=== PATIENT | female | born 1950 | race Caucasian/White ===

== ENCOUNTER 2016-09-10 13:27 | Observation (INO) | payer MEDICARE, OTHER ==
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
--- NOTE | ~2016-09-10 | CR63 ---
[facility] A Service of [facility] & [facility] RADIOLOGY TEXT RESULTS PATIENT: JENN RIZVI LOCATION: [place] [address] : [birth year] UNIT #: [id number] AGE: [address]: Ronni Keita MD SEX: F ORDER DR: [id number] [facility] [address] [place], [place] [address] [id number] I MR#: [id number] Acc #: [id number] NAME: JENN RIZVI : 1950 SEX: F STUDY DATE/TIME: 09/10/2016 18:16 UNIT: [facility] ROOM: [facility] STUDY DESCRIPTION: CR Chest 2 View Attending Physician: Ronni Keita M.D. Referring Physician: Ivone Keita M.D. Ordering Physician: Yang Conte M.D. Primary Care Physician: Ivone Keita M.D. MEDICAL IMAGING REPORT This report is preliminary unless electronic signature is present EXAM Chest INDICATIONS Shortness of air and left-sided chest pain. 4-day duration. FINDINGS PA and lateral views of the chest compared to 04/27/2007. Heart and mediastinal contours normal. The lungs are clear. No pleural effusion. IMPRESSION No acute cardiopulmonary findings. Dictated by... Fausto Atkins M.D. THIS IS AN ELECTRONICALLY VERIFIED REPORT Fausto Atkins M.D. at 09/11/2016 10:53 AM RPC/pcl TD: 09/10/2016 23:33 JOB #: [id number] MEDICAL IMAGING REPORT COPY
--- NOTE | ~2016-09-10 | EKG ---
PATIENT: JENN RIZVI UNIT #: [id number] Ventricular Rate: 74 BPM Atrial Rate: 74 BPM P-R Interval: 162 ms QRS Duration: 84 ms Q-T Interval: 418 ms QTC Calculation(Bezet): 463 ms P [place]: 69 degrees Calculated R [place]: 48 degrees Calculated T [place]: 61 degrees Diagnosis Line: Normal sinus rhythm Diagnosis Line: Normal ECG Diagnosis Line: When compared with ECG of 10-SEP-2016 17:38, Diagnosis Line: No significant change was found Diagnosis Line: Confirmed by LANE DIAZ MD ([id number]) on 09/12/2016 Diagnosis Line: 7:07:21 AM INTERPRETING MD: EMILY WATT
--- NOTE | ~2016-09-10 | TH ---
Unit #: [id number] #: [id number] Patient: JENN RIZVI [id number] [address] [address] [id number] I MR#: [id number] NAME: JENN RIZVI : 1950 SEX: F STUDY DATE/TIME: 09/11/2016 UNIT: C5B ROOM: 558 STUDY DESCRIPTION: Imaging Study Attending Physician: Ronni Keita M.D. Referring Physician: Ivone Keita M.D. Primary Care Physician: Ivone Keita M.D. CARDIOLOGY REPORT EXAM Dobutamine Cardiolite stress test, nuclear portion PROCEDURE Using [id number] Cardiolite, rest and stress SPECT images were obtained. Multiple SPECT images were obtained in various views including horizontal and vertical long axis and short axis views of the left ventricle. Images were obtained by gated SPECT method. Patient was administered 11.04 mCi of Cardiolite at rest. Patient was administered 32.5 mCi of Cardiolite after Lexiscan infusion was completed. On the stress images there is normal perfusion noted. The rest images showed normal perfusion. Comparing rest and stress images there is no stress-induced ischemia noted. The left ventricular ejection fraction is calculated to be 64%. There is no focal wall motion abnormality seen. CONCLUSION 1. No stress-induced ischemia noted. 2. The left ventricular ejection fraction is calculated to be 64%. 3. There is no focal wall motion abnormality seen. 4. The left ventricular size is small. 5. Normal dobutamine Cardiolite stress test. 6. Technically limited study due to increased gut uptake. Clinical correlation is requested. Dictated by... Della Granados/alex TD: 09/11/2016 22:32 JOB #: [id number] Unit #: [id number] #: [id number] Patient: JENN RIZVI CARDIOLOGY REPORT X Mei Robertson MD <ELECTRONICALLY SIGNED> 02/16/17 1428 CARDIOLOGY REPORT
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
--- NOTE | ~2016-09-10 | EKG ---
PATIENT: JENN RIZVI UNIT #: [id number] Ventricular Rate: 78 BPM Atrial Rate: 78 BPM P-R Interval: 156 ms QRS Duration: 80 ms Q-T Interval: 388 ms QTC Calculation(Bezet): 442 ms P [place]: 82 degrees Calculated R [place]: 70 degrees Calculated T [place]: 66 degrees Diagnosis Line: Normal sinus rhythm Diagnosis Line: Normal ECG Diagnosis Line: When compared with ECG of 23-MAR-2013 13:32, Diagnosis Line: No significant change was found Diagnosis Line: Confirmed by XIANG ALCARAZ MD ([id number]) on Diagnosis Line: 09/10/2016 11:08:34 PM INTERPRETING MD: VAISHNAVI
--- NOTE | ~2016-09-10 | CT16 ---
[facility] A Service of [facility] & [facility] RADIOLOGY TEXT RESULTS PATIENT: JENN RIZVI LOCATION: [facility] 55-01 : [birth year] UNIT #: [id number] AGE: [address]: Ronni Keita MD SEX: F ORDER DR: [id number] [facility] [address] [place], [place] [address] [id number] I MR#: [id number] Acc #: [id number] NAME: JENN RIZVI : 1950 SEX: F STUDY DATE/TIME: 09/11/2016 19:54 UNIT: [facility] ROOM: [facility] STUDY DESCRIPTION: CT Angio Chest for PE Attending Physician: Ronni Keita M.D. Referring Physician: Ivone Keita M.D. Ordering Physician: Isabel Freedman M.D. Primary Care Physician: Ivone Keita M.D. MEDICAL IMAGING REPORT This report is preliminary unless electronic signature is present EXAM CT angiography chest for PE HISTORY D-dimer 2025, 09/11/2016 at 1444 hours. Short of air for [address] pulmonary angiography performed with intravenous administration of 80 mL Isovue-370. Three-dimensional reconstructions performed through the pulmonary arteries. This CT exam was performed with one or more of the following radiation dose reduction techniques: automatic exposure control, adjustment of mA and/or kV according to patient size, and iterative reconstruction. COMPARISON STUDIES Most recent comparison is a study dated 05/30/2005. FINDINGS Visualized thyroid unremarkable. Status post bilateral augmentation mammoplasty. No axillary adenopathy. There is a stable hypodense precarinal structure measuring up to about 1.3 cm in diameter. Given differences in scan angulation, not significantly changed. This may represent a stable, rather hypodense lymph node or some form of stable mediastinal cyst. There are densely calcified subcarinal lymph nodes. The heart is normal in size. No pleural effusions. Liver unremarkable. Gallbladder is probably still present but incompletely visualized on this examination. Correlate with surgical history. Spleen, pancreas, adrenal glands, upper renal poles unremarkable. No upper abdominal adenopathy. The esophagus is unremarkable. Ekfsxjpt-ix-nmugnx incompletely visualized stomach shows a large volume of food debris within the stomach. This might be physiologic in nature. Correlate with ingestion history. No STS. [facility] A Service of [facility] & [facility] RADIOLOGY TEXT RESULTS PATIENT: JENN RIZVI LOCATION: [place] [address] : [birth year] UNIT #: [id number] AGE: [address]: Ronni Keita MD SEX: F ORDER DR: focal gastric wall abnormality is suggested in the visualized stomach. The lungs show centrilobular and panlobular emphysema. There is no evidence of acute infectious or inflammatory disease. Linear scarring or atelectasis at the right lung base. Calcified granuloma right lung base. Linear scarring or atelectasis left lung base. No acute pulmonary disease suggested. No suspicious nodule. Borderline bronchiectasis centrally. More pronounced than on prior study. Mild bronchial wall prominence likely reflecting components of chronic bronchitis. No mucous plugging. Subpleural 5 mm nodule posterior right lower lobe, unchanged from 2004 and therefore felt to be benign in nature. No suspicious nodule. The pulmonary arteries are well opacified. No PE. No aortic aneurysm or dissection. Scattered atherosclerotic arterial calcifications. Great vessel origins are patent. The celiac axis and superior mesenteric arteries are patent with mild disease at their origins. The bilateral visualized renal arteries are patent with zgex-en-hyxrxwwv disease at their origins. Visualized abdominal aorta normal in caliber. Bony structures show no acute abnormality. IMPRESSION 1. No PE. 2. No aortic aneurysm or dissection. The visualized aortic branch vessels are patent. Scattered atherosclerotic arterial calcifications. 3. COPD with centrilobular and panlobular emphysema. Mild bronchial wall thickening, more pronounced centrally, probably reflecting chronic bronchitis. Borderline central bronchiectasis. 4. There is no indication of acute infectious or inflammatory disease in the lungs. No suspicious nodule. Stable 5 mm noncalcified subpleural nodule posterior right lower lobe, unchanged from 2004 and therefore felt to be benign in nature. Healed granulomatous disease. 5. There is a 1.3 cm short-axis hypodense pre-carinal lymph node or mediastinal cyst which is unchanged from 2004 and felt to be benign in nature. 6. The stomach is only partially visualized but appears at least moderately distended with food debris. Correlate with ingestion history. This is probably physiologic in nature. Correlate with any clinical concern for gastroparesis. 7. Postoperative changes of bilateral augmentation mammoplasty. Dictated by... Hany Davenport M.D. THIS IS AN ELECTRONICALLY VERIFIED REPORT Hany Davenport M.D. at 09/12/2016 4:30 PM VALDEMAR/kale TD: 09/11/2016 22:27 [facility] A Service of [facility] RADIOLOGY TEXT RESULTS PATIENT: JENN RIZVI LOCATION: [place] [address] : [birth year] UNIT #: [id number] AGE: [address]: Ronni Keita MD SEX: F ORDER DR: ARSEN #: [id number] MEDICAL IMAGING REPORT COPY
--- NOTE | ~2016-09-10 | ST ---
Unit #: [id number] #: [id number] Patient: JENN RIZVI [id number] [address] [address] [id number] I MR#: [id number] NAME: JENN RIZVI : 1950 SEX: F STUDY DATE/TIME: 09/11/2016 UNIT: C5B ROOM: 558 STUDY DESCRIPTION: Stress test Attending Physician: Ronni Keita M.D. Referring Physician: Ivone Keita M.D. Primary Care Physician: Ivone Keita M.D. CARDIOLOGY REPORT EXAM Dobutamine Lexiscan Cardiolite stress test DESCRIPTION OF PROCEDURE AND FINDINGS Baseline EKG normal sinus rhythm with ventricular rate 64 beats per minute, left atrial abnormality, Q wave in V1, poor R-wave progression. Dobutamine was infused at 10 mcg/kg per minute and increased every three minutes to a maximum infusion rate of 45 mcg/kg per minute. On this dobutamine infusion the heart rate only got to 117 beats per minute, required 0.2 mg of IV atropine to get a maximum heart rate response of 141 beats per minute. EKG during the infusion and after the atropine did not show any acute ischemic changes. Patient had no complaints of chest pain, palpitations or dizziness, increased shortness of breath and felt heart pounding during the infusion. Maximum blood pressure response was 177/80 mmHg. At the end of recovery phase the patient's blood pressure was 141/69 mmHg. Cardiolite was injected at maximum target heart rate. Radionuclide test pending. Please correlate with nuclear images. Dictated by... Nadia Asher A.P.R.N. for Della Granados/alex TD: 09/11/2016 20:02 JOB #: [id number] Unit #: [id number] #: [id number] Patient: JENN RIZVI CARDIOLOGY REPORT X Nadia Asher APRN CARDIOLOGY REPORT
[~2016-09-10 13:27] MED LIST: ANTIVERT PO; BUMEX PO; DOXEPIN PO; FLEXERIL10 MG PO; KLONOPIN PO; KLONOPIN2 MG PO; LORTAB 5/500 TA1 TA1 PO; LORTAB 7.5-5001 TAB PO; LOTREL PO; MOBIC PO; MOBIC15 MG PO; NEURONTIN600 MG DOB; PERCOCET 71 UDTAB 7. PO; PREMARIN PO; PRILOSEC PO; SEROQUEL PO; SEROQUEL400 MG DOB; VICODIN 5/500 T1 TAB PO; [UNRECOGNIZED DRUG - OTHER] TOP
[2016-09-10 18:31] LABS: HEMATOCRIT 39.9 % (35.0-45.0); HEMOGLOBIN 13.3 gm/dL (12.0-16.0); MEAN CELL VOLUME 103.7 FL (83-96); MEAN CORPUSCULAR HEMOGLOBIN 34.7 PG (28-34); MEAN CORPUSCULAR HGB CONC 33.4 g/dL (30-36); MEAN PLATELET VOLUME 8.8 FL (6.5-11.5); RED BLOOD COUNT 3.84 X10e (3.90-5.30); RED CELL DISTRIBUTION WIDTH 12.4 % (11.0-15.5); WHITE BLOOD COUNT 5.8 X10e3 (4.0-10.5)
[2016-09-10 18:38] LABS: ALBUMIN SERUM 3.9 g/dL (3.5-5.0); ALKALINE PHOSPHATASE 54 U/L (32-92); ALT (SGPT) 54 U/L (10-40); AST (SGOT) 59 U/L (10-42); BILIRUBIN,TOTAL 0.9 mg/dL (0.2-2.0); BLOOD UREA NITROGEN 21 mg/dL (9-23); CALCIUM SERUM 8.3 mg/dL (8.4-10.2); CARBON DIOXIDE 28 mmol/L (22-31); CHLORIDE 103 mmol/L (100-111); CK TOTAL 35 IU/L (26-140); CREATININE SERUM 0.6 mg/dL (0.6-1.4); GLOM FILT RATE Estimated ABOVE60 mL/min (>60); GLUCOSE FASTING 72 mg/dL (70-110); POTASSIUM 3.7 mmol/L (3.5-5.1); PROTEIN TOTAL SERUM 6.6 g/dL (6.0-8.3); SODIUM 135 mmol/L (135-145)
[2016-09-10 18:48] LABS: THYROID STIMULATING HORMONE 0.71 uIU/ml (0.34-5.60)
[2016-09-10 18:55] LABS: FREE THYROXIN (T4) 0.72 ng/dL (0.58-1.64)
[2016-09-10] MEDS ORDERED: XTAMPZA ER18 MG PO (19:41)
[2016-09-10] MEDS ORDERED: NEURONTIN300 MG PO (19:42)
[2016-09-10] MEDS ORDERED: KLONOPIN2 MG PO (19:42)
[2016-09-10] MEDS ORDERED: OMEGA-3 1,0001 EACH PO (19:43)
[2016-09-10] MEDS ORDERED: SEROQUEL400 MG PO (19:44)
[2016-09-10] MEDS ORDERED: REMERON PO (19:45)
[2016-09-11 02:13] LABS: CK TOTAL 32 IU/L (26-140)
[2016-09-11 07:41] LABS: CHOLESTEROL 169 mg/dL (0-200); HDL CHOLESTEROL 63 mg/dL (35-95); LDL CHOLESTEROL 98 mg/dL (-130); LDL/HDL RATIO 2 RATIO (0-4); TRIGLYCERIDES 39 mg/dL (10-160)
[2016-09-11 14:35] LABS: CK TOTAL 24 IU/L (26-140)
[2016-09-12] MEDS ORDERED: NICOTINE TRANSD14 MG EXT (14:20)
[2016-09-12] MEDS ORDERED: LOPRESSOR PO (14:23)
[2016-09-12] MEDS ORDERED: AUGMENTIN875 MG PO (14:24)
[2016-09-12] MEDS ORDERED: PROTONIX PO (14:25)
[2016-09-12] MEDS ORDERED: PREDNISONE PO (14:26)
[2016-09-12] MEDS ORDERED: SYMBICORT INH (14:27)
[2016-09-12] MEDS ORDERED: ALBUTEROL17 GM INH (14:30)
== END 2016-09-12 18:45 | disposition home or self-care (01) ==
LOC: C5B 13:27
PROVIDERS: Internal Medicine; Nurse Practitioner
DX: R07.89 Other chest pain (principal); R79.89 Other specified abnormal findings of blood chemistry; J44.1 Chronic obstructive pulmonary disease with (acute) exacerbation; I10 Essential (primary) hypertension; F17.210 Nicotine dependence, cigarettes, uncomplicated; F41.9 Anxiety disorder, unspecified; R00.2 Palpitations
CPT/HCPCS: 71020; 71275; 78452; 80053; 80061; 82550; 84439; 84443; 84484; 85027; 85379; 93005; 93017; 93306; 94760; 96374; 96376; A9500; G0378; J0461; J1250; J2785; J2920; J2930; Q9967

== ENCOUNTER 2017-02-09 15:36 | Observation (INO) | payer MEDICARE, OTHER ==
[~2017-02-09] VITALS: Ht 165.1 cm; Wt 45.9 kg
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
--- NOTE | ~2017-02-09 | EKG ---
PATIENT: JENN RIZVI UNIT #: [id number] Ventricular Rate: 94 BPM Atrial Rate: 94 BPM P-R Interval: 134 ms QRS Duration: 86 ms Q-T Interval: 368 ms QTC Calculation(Bezet): 460 ms P [place]: 78 degrees Calculated R [place]: 71 degrees Calculated T [place]: 42 degrees Diagnosis Line: Normal sinus rhythm Diagnosis Line: Normal ECG Diagnosis Line: When compared with ECG of 11-SEP-2016 07:14, Diagnosis Line: No significant change was found Diagnosis Line: Confirmed by SILVERIO SALEH MD ([id number]) on Diagnosis Line: 02/10/2017 5:40:55 PM INTERPRETING MD: DELFINO WATT
--- NOTE | ~2017-02-09 | CT16 ---
[facility] A Service of [facility] RADIOLOGY TEXT RESULTS PATIENT: JENN RIZVI LOCATION: [facility] 548-01 : 48 UNIT #: [id number] AGE: [address]: Isabel Freedman MD SEX: F ORDER DR: [id number] [facility] [address] [place], [place] [address] [id number] I MR#: [id number] #: [id number] NAME: JENN RIZVI : 1950 SEX: F STUDY DATE/TIME: 02/09/2017 19:54 UNIT: CEDOF ROOM: 68728 STUDY DESCRIPTION: CT Angio Chest for PE Attending Physician: Isabel Freedman M.D. Ordering Physician: Lj Benitez D.O. Primary Care Physician: Ivone Keita M.D. MEDICAL IMAGING REPORT This report is preliminary unless electronic signature is present EXAM CT angiography of the chest with IV contrast, PE protocol COMPARISON September 01, 2016 and May 30, 2005. INDICATION 66-year-old female with chest pain for 2 days localizing the substernal location. FINDINGS This CT exam was performed with one or more of the following radiation dose reduction techniques: automatic control, adjustment of mA and/or kV according to patient size, and iterative reconstruction. Axial CT imaging of the chest was performed after IV administration of 100 mL Isovue-370. Coronal MIPs and sagittal reformats were constructed. There are bilateral silicone breast implants. These both have extensive capsular calcifications. There are linguini signs in both implants consistent with intracapsular rupture. No acute fractures or suspicious osseous lesions. Calcifications of the common carotid arteries in the bilateral neck. There is a pretracheal lymph node measuring up to 1.1 cm short axis which is stable to minimally increased from September 11 of this year and stable from May 2005. 1.2 cm short axis precarinal lymph nodes also stable from 2004. There are calcified subcarinal lymph nodes. There is diffuse calcification of the thoracic aorta which is normal in caliber. Normal caliber of the pulmonary artery. No evidence of pulmonary embolus. Normal heart size, without pericardial effusion. No pleural effusion, pneumothorax or focal airspace disease. There is moderate centrilobular emphysema. Calcified granuloma right middle lobe calcified granuloma posterior basilar segment right lower lobe. There is calcified and noncalcified plaque in the abdominal aorta. Calcifications involve the origins of the celiac, superior mesenteric and bilateral renal STS. [facility] A Service of [facility] RADIOLOGY TEXT RESULTS PATIENT: JENN RIZVI LOCATION: [place] [address] : [birth year] UNIT #: [id number] AGE: [address]: Isabel Freedman MD SEX: F ORDER DR: arteries. There is likely at least moderate stenosis of the origin of the right renal artery and there is likely at least mild stenosis at the origin of the left renal artery. No significant stenosis is seen at the celiac, superior mesenteric arteries. Simple cysts in the superior left kidney measuring up to 1.8 cm. IMPRESSION 1. No evidence of pulmonary embolus or acute abnormality within the chest or imaged upper abdomen. 2. Bilateral carotid artery calcifications in the neck. Extensive arterial calcifications in the upper abdomen likely causing some degree of stenosis at the origins of both renal arteries. 3. Moderate centrilobular emphysema. 4. Bilateral silicone breast implants with evidence of intracapsular rupture bilaterally. 5. Stable mildly enlarged lymph nodes in the mediastinum as compared to 2005, consistent with a reactive process. The patient has evidence of remote granulomatous infection in the chest. Dictated by... Mckinley Cardenas M.D. THIS IS AN ELECTRONICALLY VERIFIED REPORT Mckinley Cardenas M.D. at 02/16/2017 8:37 PM HALLIE/robert TD: 02/10/2017 01:36 JOB #: [id number] MEDICAL IMAGING REPORT Page 1 of 1 COPY
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
--- NOTE | ~2017-02-09 | A ---
[facility] Nutrition Therapy DATE: 02/11/17 Patient: JENN Cid BELKYS Physician: KANWAL Address: [address] [place] [address] Room/Bed: [address] [place] [address], Zip: [place] [address] Admit Date: 02/10/17 Date of : [birth year] Height: 5 5 Weight: 80 36.28 NUTRITIONAL ASSESSMENT: REASON: LOW BMI + CONSULT PT IS 66 Y.O. FEMALE ADMITTED FOR CHEST PAIN PMH: COPD, PNA, GERD, HTN, HLD, LUNG/COLON CA, ANXIETY, DEPRESSION, ?SEIZURES, PAST ADMIT AT [facility], BREAST AUGMENTATION Anthropometrics: 5'5", WT: 85# (39 KG), BMI: 14.1, 68%IBW Labs: BUN: 27, CA+:8.1, K+:3.1 Meds: REMERON, PROTONIX, NACL I/O & Bowel function: 910/3 Skin Integrity: SCAR (R) HIP, NO EDEMA Estimated Nutrition Needs: INCREASED NEEDS 2' PT UNDERWEIGHT, DECREASED PO INTAKE, WEIGHT LOSS NOTED Assessment: CHART REVIEWED AND EVENTS NOTED. PT SEEN FOR LOW BMI + CONSULT. PT REPORTS OVERALL GOOD APPETITE, NO C/O N/V/D. PT REPORTS STRESS AT HOME CONTRIBUTING TO HER WEIGHT LOSS AND UNDERWEIGHT STATUS. PT REPORTS UBW IS ~132#/ NOTING LOSING ~45# 1-2 YEARS AGO/SEVERE WEIGHT LOSS NOTED. THIS RD ENCOURAGED ADEQUATE KCAL AND PROTEIN INTAKE, PT AGREED TO ENSURE SHAKES TID W/MEALS. ALSO, PER RN AND CHART, FIRE FIGHTERS DISPATCHER/PIPE LINE GAUGER ON BOARD FOR PT'S HOME SITUATION. PT REPORTED NO DIET QUESTIONS AT THIS TIME. RD TO CONTINUE TO FOLLOW. SEE RECOMMENDATIONS BELOW. Dx: UNDERWEIGHT R/T HOME SITUATION, STRESS AT HOME AEB LOW BMI OF 14.1, 68%IBW, SEVERE WEIGHT LOSS NOTED PAST 1-2 YEARS. Intervention: 1. HH DIET 2. RD CONSULT 3. ENSURE SHAKES TID Monitoring, Evaluation and Goals: 1. ORAL INTAKE; CONSUME/TOLERATE >50% OF MEALS AND SUPPLEMENTS 2. WEIGHTS; PROMOTE GRADUAL WEIGHT GAIN TOWARDS HEALTHY; PREVENT FURTHER WEIGHT LOSS 3. LABS; WNL MONITOR: -PO INTAKE/APPETITE [facility] Nutrition Therapy DATE: 02/11/17 Patient: JENN YUS Physician: KANWAL Address: [address] Room/Bed: [address] [place] [address], Zip: [place] [address] Admit Date: 02/10/17 Date of : [birth year] Height: 5 5 Weight: 80 36.28 -WEIGHTS -SUPPLEMENT INTAKE Recommendations: 1. PLEASE ORDER STRAWBERRY ENSURE SHAKES TID W/MEALS 2. CONSIDER CHANGING CURRENT DIET ORDER TO REGULAR TO OFFER MORE FOOD CHOICES, OFFER ADDITIONAL PROTEIN AND KCAL, PT UNDERWEIGHT 3. CONTINUE PIPE LINE GAUGER/FIRE FIGHTERS DISPATCHER CONSULT RE: PT'S HOME SITUATION RD WILL F/U PER PROTOCOL PT IS MODERATELY COMPROMISED Respectfully, MERCED SANTO MS, RD, LD [employer] cc: client file
--- NOTE | ~2017-02-09 | EKG ---
PATIENT: JENN RIZVI UNIT #: [id number] Ventricular Rate: 61 BPM Atrial Rate: 61 BPM P-R Interval: 118 ms QRS Duration: 80 ms Q-T Interval: 440 ms QTC Calculation(Bezet): 442 ms P [place]: 64 degrees Calculated R [place]: 77 degrees Calculated T [place]: 62 degrees Diagnosis Line: Normal sinus rhythm Diagnosis Line: Normal ECG Diagnosis Line: When compared with ECG of 09-FEB-2017 15:40, Diagnosis Line: (unconfirmed) Diagnosis Line: Vent. rate has decreased BY 33 BPM Diagnosis Line: Confirmed by ALBARO MARX MD ([id number]) on Diagnosis Line: 02/11/2017 12:20:35 PM INTERPRETING MD: SUSANNAH
--- NOTE | ~2017-02-09 | CR72 ---
[facility] A Service of [facility] RADIOLOGY TEXT RESULTS PATIENT: JENN RIZVI LOCATION: [place] [address] : [birth year] UNIT #: [id number] AGE: [address]: Isabel Freedman MD SEX: F ORDER DR: [id number] [facility] [address] [place], [place] [address] [id number] E MR#: [id number] Acc #: [id number] NAME: JENN RIZVI : 1950 SEX: F STUDY DATE/TIME: 02/09/2017 16:27 UNIT: [facility] ROOM: STUDY DESCRIPTION: CR Chest Single View Portable Attending Physician: Lj Benitez D.O. Ordering Physician: Lj Benitez D.O. Primary Care Physician: Ivone Keita M.D. MEDICAL IMAGING REPORT This report is preliminary unless electronic signature is present EXAM Portable chest HISTORY Chest pain. Cough and congestion for 2 days. FINDINGS Cardiac size and pulmonary vascularity are normal. Mild hyperinflation both lungs. Peripherally calcified breast implants. No airspace infiltrates or effusions are identified. Calcified mediastinal nodes. Additional small calcified granuloma in the right lung base. IMPRESSION No acute findings Dictated by... Israel Arreola M.D. THIS IS AN ELECTRONICALLY VERIFIED REPORT Israel Arreola M.D. at 02/10/2017 6:05 PM DFL/rnr TD: 02/09/2017 23:15 JOB #: [id number] MEDICAL IMAGING REPORT Page 1 of 1 COPY
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
[~2017-02-09 15:36] MED LIST changes: +ALBUTEROL17 GM INH; +AUGMENTIN875 MG PO; +LOPRESSOR PO; +NEURONTIN300 MG PO; +NICOTINE TRANSD14 MG EXT; +OMEGA-3 1,0001 EACH PO; +PREDNISONE PO; +PROTONIX PO; +REMERON PO; +SEROQUEL400 MG PO; +SYMBICORT INH; +XTAMPZA ER18 MG PO
[2017-02-09 17:25] LABS: POC - CKMB 2.1 ng/mL (0.0-7.9); POC - TROPONIN <0.05 ng/mL (<=0.05)
[2017-02-09 17:25] LABS: BASOPHIL# 0.1 X10e3 (0-0.3); DIFF IND NO; EOSINOPHIL# 0.1 X10e3 (0-0.7); EOSINOPHIL% 0.7 % (0.0-7.0); HEMATOCRIT 44.1 % (35.0-45.0); HEMOGLOBIN 14.6 gm/dL (12.0-16.0); LYMPHOCYTE# 2.6 X10e3 (1.0-3.5); LYMPHOCYTE% 34.1 % (17.0-45.0); MEAN CELL VOLUME 101.6 FL (83-96); MEAN CORPUSCULAR HEMOGLOBIN 33.6 PG (28-34); MEAN CORPUSCULAR HGB CONC 33.1 g/dL (30-36); MONOCYTE# 0.6 X10e3 (0-1.0); MONOCYTE% 7.4 % (3.0-12.0); NEUTROPHIL# 4.3 X10e3 (1.5-7.1); NEUTROPHIL% 56.8 % (40-75); PLATELET COUNT 202 X10e3 (140-420); RED BLOOD COUNT 4.34 X10e (3.90-5.30); WHITE BLOOD COUNT 7.6 X10e3 (4.0-10.5)
[2017-02-09 17:42] LABS: PARTIAL THROMBOPLASTIN TIME 25.4 SECONDS (23.5-31.3)
[2017-02-09 17:51] LABS: ALBUMIN SERUM 4.2 g/dL (3.5-5.0); BILIRUBIN, DIRECT 0.1 mg/dL (0.0-0.2); BILIRUBIN,INDIRECT 0.6 mg/dL (0.0-0.9); BILIRUBIN,TOTAL 0.7 mg/dL (0.2-2.0); CALCIUM SERUM 8.8 mg/dL (8.4-10.2); GLOM FILT RATE Estimated 57.9 mL/min (>60); POTASSIUM 3.3 mmol/L (3.5-5.1); PROTEIN TOTAL SERUM 7.5 g/dL (6.0-8.3)
[2017-02-09 19:26] LABS: POC - CKMB 1.4 ng/mL (0.0-7.9); POC - TROPONIN <0.05 ng/mL (<=0.05)
[2017-02-10 01:09] LABS: BASOPHIL% 0.7 % (0-2.5); EOSINOPHIL# 0.1 X10e3 (0-0.7); EOSINOPHIL% 1.6 % (0.0-7.0); HEMATOCRIT 39.8 % (35.0-45.0); HEMOGLOBIN 13.1 gm/dL (12.0-16.0); LYMPHOCYTE# 2.6 X10e3 (1.0-3.5); LYMPHOCYTE% 45.3 % (17.0-45.0); MEAN CELL VOLUME 101.3 FL (83-96); MEAN CORPUSCULAR HEMOGLOBIN 33.4 PG (28-34); MEAN CORPUSCULAR HGB CONC 32.9 g/dL (30-36); MEAN PLATELET VOLUME 8.9 FL (6.5-11.5); MONOCYTE# 0.4 X10e3 (0-1.0); MONOCYTE% 6.9 % (3.0-12.0); NEUTROPHIL# 2.6 X10e3 (1.5-7.1); NEUTROPHIL% 45.5 % (40-75); PLATELET COUNT 169 X10e3 (140-420); RED BLOOD COUNT 3.93 X10e (3.90-5.30); WHITE BLOOD COUNT 5.8 X10e3 (4.0-10.5)
[2017-02-10 01:12] LABS: DIFF IND NO
[2017-02-10 01:34] LABS: BUN/CREATININE RATIO 33.75; CALCIUM SERUM 8.1 mg/dL (8.4-10.2); CREATININE SERUM 0.8 mg/dL (0.6-1.4); GLOM FILT RATE Estimated 75.8 mL/min (>60); POTASSIUM 3.1 mmol/L (3.5-5.1)
[2017-02-10] MEDS ORDERED: PERCOCET5/325 PO (10:50)
[2017-02-12 05:25] LABS: HEMATOCRIT 39.4 % (35.0-45.0); HEMOGLOBIN 12.9 gm/dL (12.0-16.0); MEAN CELL VOLUME 101.8 FL (83-96); MEAN CORPUSCULAR HEMOGLOBIN 33.3 PG (28-34); MEAN CORPUSCULAR HGB CONC 32.8 g/dL (30-36); MEAN PLATELET VOLUME 9.6 FL (6.5-11.5); RED BLOOD COUNT 3.87 X10e (3.90-5.30); RED CELL DISTRIBUTION WIDTH 13.1 % (11.0-15.5)
[2017-02-12 06:21] LABS: BUN/CREATININE RATIO 48.57; CALCIUM SERUM 8.6 mg/dL (8.4-10.2); CREATININE SERUM 0.7 mg/dL (0.6-1.4); POTASSIUM 3.7 mmol/L (3.5-5.1)
== END 2017-02-12 17:00 | disposition home or self-care (01) ==
LOC: CED 15:36 → C5B 02-10 00:07 → CEDOF 02-10 00:07 → C5B 02-10 08:41
PROVIDERS: Emergency Medicine; Physician Assistant Medical
DX: R07.89 Other chest pain (principal); F41.9 Anxiety disorder, unspecified; F32.9 Major depressive disorder, single episode, unspecified; J44.9 Chronic obstructive pulmonary disease, unspecified; I10 Essential (primary) hypertension; E78.5 Hyperlipidemia, unspecified; I65.23 Occlusion and stenosis of bilateral carotid arteries; R59.0 Localized enlarged lymph nodes; I70.8 Atherosclerosis of other arteries; T85.898A Other specified complication of other internal prosthetic devices, implants and grafts, initial encounter; Z98.82 Breast implant status; F17.200 Nicotine dependence, unspecified, uncomplicated; Z79.899 Other long term (current) drug therapy; Z79.891 Long term (current) use of opiate analgesic; Z90.710 Acquired absence of both cervix and uterus
CPT/HCPCS: 36415; 71010; 71275; 80048; 80076; 82550; 82553; 84484; 85025; 85027; 85379; 85610; 85730; 93005; 94640; 94664; 94760; 96360; 96361; 96372; 96374; 96376; 97162; 99285; C9113; G0378; G8978-GP; G8979-GP; G8980-GP; J1650; Q9967

== ENCOUNTER 2017-03-22 20:58 | Emergency (ER) | payer MEDICARE, OTHER ==
[~2017-03-22] VITALS: Ht 165.1 cm; Wt 45.4 kg
--- NOTE | ~2017-03-22 | CT71 ---
[facility] A Service of [facility] RADIOLOGY TEXT RESULTS PATIENT: JENN RIZVI LOCATION: SED : 48 UNIT #: [id number] AGE: [address]: Hany Hawk MD SEX: F ORDER DR: [id number] [address] [address] [id number] E MR#: [id number] Acc #: [id number] NAME: JENN RIZVI : 1950 SEX: F STUDY DATE/TIME: 03/22/2017 22:01 UNIT: SED ROOM: STUDY DESCRIPTION: CT Head Wo Contrast Attending Physician: Hany Hawk M.D. Ordering Physician: Hany Hawk M.D. Primary Care Physician: Ivone Keita M.D. MEDICAL IMAGING REPORT This report is preliminary unless electronic signature is present. EXAM Head CT without contrast HISTORY Dizziness for the past 5 days. Patient has fallen several times. Headache. Unsure whether loss of consciousness. TECHNIQUE Axial images were obtained without contrast. This CT exam was performed with one or more of the following radiation dose reduction techniques: automatic control, adjustment of mA and/or kV according to patient size, and iterative reconstruction. FINDINGS Postoperative changes are seen on the right. Encephalomalacia is seen in the right frontal and parietal lobes. Generalized atrophy is noted. There is no evidence of mass lesion, hemorrhage or edema. Since the previous scan in 2012 no changes are noted. A scalp hematoma is seen over the left frontal bone without evidence of fracture or foreign body. IMPRESSION Stable postoperative encephalomalacia on the right. Left frontal scalp hematoma. No acute findings otherwise. Dictated by... Jarvis Paniagua M.D. THIS IS AN ELECTRONICALLY VERIFIED REPORT Jarvis Paniagua M.D. at 03/25/2017 7:14 AM RLF/robert TD: 03/24/2017 01:08 [facility] A Service [facility] RADIOLOGY TEXT RESULTS PATIENT: JENN RIZVI LOCATION: [facility] : 46 UNIT #: [id number] AGE: [address]: Hany Hawk MD SEX: F ORDER DR: ARSEN #: [id number] MEDICAL IMAGING REPORT Page 1 of 1
--- NOTE | ~2017-03-22 | EKG ---
PATIENT: JENN RIZVI UNIT #: [id number] Ventricular Rate: 85 BPM Atrial Rate: 85 BPM P-R Interval: 144 ms QRS Duration: 82 ms Q-T Interval: 388 ms QTC Calculation(Bezet): 461 ms P [place]: 81 degrees Calculated R [place]: 80 degrees Calculated T [place]: 70 degrees Diagnosis Line: Normal sinus rhythm Diagnosis Line: Possible Left atrial enlargement Diagnosis Line: Borderline ECG Diagnosis Line: When compared with ECG of 10-FEB-2017 07:16, Diagnosis Line: No significant change was found Diagnosis Line: Confirmed by YISEL BRITT MD ([id number]) on Diagnosis Line: 03/25/2017 1:50:14 PM INTERPRETING MD: LORENZA WATT
--- NOTE | ~2017-03-22 | CT52 ---
[facility] A Service of [facility] RADIOLOGY TEXT RESULTS PATIENT: JENN RIZVI LOCATION: [facility] : 46 UNIT #: [id number] AGE: [address]: Hany Hawk MD SEX: F ORDER DR: [id number] [address] [address] [id number] E MR#: [id number] Acc #: [id number] NAME: JENN RIZVI : 1950 SEX: F STUDY DATE/TIME: 03/22/2017 22:01 UNIT: SED ROOM: STUDY DESCRIPTION: CT Cervical Spine Wo Cont Attending Physician: Hany Hawk M.D. Ordering Physician: Hany Hawk M.D. Primary Care Physician: Ivone Keita M.D. MEDICAL IMAGING REPORT This report is preliminary unless electronic signature is present. EXAM Cervical spine CT HISTORY Neck pain after falling several times over the past 5 days secondary to dizziness. TECHNIQUE Thin section imaging was obtained from the skull base to the upper thoracic spine and evaluated at bone and soft tissue windows with multiplanar reformats. This CT exam was performed with one or more of the following radiation dose reduction techniques: automatic control, adjustment of mA and/or kV according to patient size, and iterative reconstruction. FINDINGS Alignment is satisfactory. There are mild degenerative changes at the upper cervical levels and there is moderate degenerative disc disease with disc space narrowing and small osteophytes at C5-6 and C6-7. The posterior facets are intact with mild facet hypertrophy noted. No fractures or destructive bone lesions are seen. No paraspinous soft tissue masses are noted. IMPRESSION Degenerative disc and facet disease generally [id number]. No acute bony abnormalities are seen. Dictated by... Jravis Paniagua M.D. THIS IS AN ELECTRONICALLY VERIFIED REPORT Jarvis Paniagua M.D. at 03/25/2017 7:14 AM [facility] A Service of [facility] RADIOLOGY TEXT RESULTS PATIENT: JENN RIZVI LOCATION: SED : 46 UNIT #: [id number] AGE: [address]: Hany Hawk MD SEX: F ORDER DR: FRANK/robert TD: 03/24/2017 01:12 JOB #: [id number] MEDICAL IMAGING REPORT Page 1 of 1
--- NOTE | ~2017-03-22 | CR219 ---
[facility] A Service of [facility] RADIOLOGY TEXT RESULTS PATIENT: JENN RIZVI LOCATION: SED : 46 UNIT #: [id number] AGE: [address]: Hany Hakw MD SEX: F ORDER DR: [id number] [place] [id number] E MR#: [id number] Acc #: [id number] NAME: JENN RIZVI : 1950 SEX: F STUDY DATE/TIME: 03/22/2017 22:06 UNIT: SED ROOM: STUDY DESCRIPTION: CR Sacrum and Coccyx Min 2 Vie Attending Physician: Hany Hawk M.D. Ordering Physician: Hany Hawk M.D. Primary Care Physician: Ivone Keita M.D. MEDICAL IMAGING REPORT This report is preliminary unless electronic signature is present. EXAM Sacrum and coccyx 03/22/2017 HISTORY 66-year-old female with low back pain and tail bone pain status post fall 5 days ago. COMPARISON None. FINDINGS 3 views of the sacrum and coccyx demonstrate no evidence of acute fracture. SI joints appear intact. Visualized bony pelvis intact. IMPRESSION Unremarkable sacrum/coccyx Dictated by... Demarco Jolley M.D. THIS IS AN ELECTRONICALLY VERIFIED REPORT Demarco Jolley M.D. at 03/25/2017 10:53 AM JUMA/robert TD: 03/24/2017 01:14 JOB #: [id number] MEDICAL IMAGING REPORT Page 1 of 1
--- NOTE | ~2017-03-22 | CR181 ---
[facility] A Service [facility] RADIOLOGY TEXT RESULTS PATIENT: JENN RIZVI LOCATION: SED : 46 UNIT #: [id number] AGE: [address]: Hany Hawk MD SEX: F ORDER DR: [id number] [place] [id number] E MR#: [id number] Acc #: [id number] NAME: JENN RIZVI : 1950 SEX: F STUDY DATE/TIME: 03/22/2017 22:06 UNIT: SED ROOM: STUDY DESCRIPTION: CR Lumbar Spine 2 or 3 Views Attending Physician: Hany Hawk M.D. Ordering Physician: Hany Hawk M.D. Primary Care Physician: Ivone Keita M.D. MEDICAL IMAGING REPORT This report is preliminary unless electronic signature is present. EXAM Lumbar spine 03/22/2017 HISTORY 66-year-old female with low back pain status post fall 5 days ago. COMPARISON None available. FINDINGS 3 views of the lumbar spine demonstrate no acute fracture or subluxation. Vertebral body heights and alignment are normally maintained. Disc spaces are within expected limits. Mild multilevel facet degeneration. Atherosclerotic calcification in the abdominal aorta. Sacrum and SI joints appear intact. IMPRESSION 1. No acute lumbar spine injury. 2. Mild multilevel facet degeneration. 3. Atherosclerotic calcification of the abdominal aorta Dictated by... Demarco Jolley M.D. THIS IS AN ELECTRONICALLY VERIFIED REPORT Demarco Jolley M.D. at 03/25/2017 10:53 AM JUMA/robert TD: 03/24/2017 01:05 JOB #: [id number] MEDICAL IMAGING REPORT [facility] A Service [facility] RADIOLOGY TEXT RESULTS PATIENT: JENN RIZVI LOCATION: SED : 46 UNIT #: [id number] AGE: [address]: Hany Hawk MD SEX: F ORDER DR: Page 1 of 1
[~2017-03-22 20:58] MED LIST changes: +PERCOCET5/325 PO
[2017-03-22] MEDS ORDERED: AMITIZA8 MCG PO (21:18)
[2017-03-22] MEDS ORDERED: KLONOPIN2 MG PO (21:18)
[2017-03-22] MEDS ORDERED: ASPIRIN81 M2 PO (21:18)
[2017-03-22 22:03] LABS: POC - CKMB 1.9 ng/mL (0.0-7.9); POC - MYOGLOBIN 42.4 ng/mL (0.0-169.0); POC - TROPONIN <0.05 ng/mL (<=0.05)
[2017-03-22 22:11] LABS: BASOPHIL% 0.4 % (0-2.5); EOSINOPHIL# 0.1 X10e3 (0-0.7); EOSINOPHIL% 0.8 % (0.0-7.0); HEMATOCRIT 39.5 % (35.0-45.0); HEMOGLOBIN 12.9 gm/dL (12.0-16.0); LYMPHOCYTE% 28.8 % (17.0-45.0); MEAN CELL VOLUME 106.3 FL (83-96); MEAN CORPUSCULAR HEMOGLOBIN 34.8 PG (28-34); MEAN CORPUSCULAR HGB CONC 32.8 g/dL (30-36); MEAN PLATELET VOLUME 8.2 FL (6.5-11.5); MONOCYTE# 0.5 X10e3 (0-1.0); MONOCYTE% 7.2 % (3.0-12.0); NEUTROPHIL# 4.4 X10e3 (1.5-7.1); NEUTROPHIL% 62.8 % (40-75); PLATELET COUNT 214 X10e3 (140-420); RED BLOOD COUNT 3.72 X10e (3.90-5.30)
[2017-03-22 22:12] LABS: DIFF IND NO
[2017-03-22 22:18] LABS: CALCIUM SERUM 8.7 mg/dL (8.4-10.2); CREATININE SERUM 0.7 mg/dL (0.6-1.4); POTASSIUM 3.3 mmol/L (3.5-5.1)
[2017-03-22 23:30] LABS: URINE SOURCE CLEAN CATCH
[2017-03-22 23:34] LABS: URINE APPEARANCE SL CLOUDY; URINE BLOOD NEG (NEG); URINE COLOR DK YELLOW; URINE GLUCOSE NEG (NORM); URINE KETONE TRACE (NEG); URINE LEUKOCYTE ESTERASE NEG (NEG); URINE NITRATE NEG (NEG); URINE PH 6.5 (5-8); URINE PROTEIN 1+ (NEG); URINE SPECIFIC GRAVITY 1.025 (1.003-1.035); URINE UROBILINOGEN >=8.0 MG/DL (NORM)
[2017-03-22 23:36] LABS: MICRO INDICATED? YES
[2017-03-22 23:37] LABS: URINE BILIRUBIN POS (NEG)
[2017-03-22 23:43] LABS: URINE CRYSTALS CALCIUM OXALATE /[HPF]; URINE MUCUS PRESENT; URINE SQUAMOUS EPITHELIAL CELL MANY /[HPF]
[2017-03-22 23:44] LABS: CULTURE INDICATED? YES; URINE AMORPHOUS SEDIMENT AMORP URATES; URINE BACTERIA 1+ (NEG)
[2017-03-22 23:45] LABS: URINE RBC 0-2 /[HPF] (0-2)
[2017-03-22 23:54] LABS: AMPHETAMINE NEG (NEG); BARBITURATES NEG (NEG); BENZODIAZEPINES POS (NEG); COCAINE NEG (NEG); MARIJUANA NEG (NEG); OPIATES NEG (NEG); TRICYCLIC ANTIDEPRESSANTS POS (NEG); U METHADONE NEG (NEG)
== END 2017-03-23 00:28 | disposition home or self-care (01) ==
LOC: SED 20:58
PROVIDERS: Emergency Medicine
DX: E86.0 Dehydration (principal); L02.811 Cutaneous abscess of head [any part, except face]; S16.1XXA Strain of muscle, fascia and tendon at neck level, initial encounter; S39.012A Strain of muscle, fascia and tendon of lower back, initial encounter; S30.0XXA Contusion of lower back and pelvis, initial encounter; J44.9 Chronic obstructive pulmonary disease, unspecified; E78.5 Hyperlipidemia, unspecified; I10 Essential (primary) hypertension; F17.210 Nicotine dependence, cigarettes, uncomplicated; Z23 Encounter for immunization; Z79.82 Long term (current) use of aspirin; Z79.899 Other long term (current) drug therapy; W19.XXXA Unspecified fall, initial encounter
CPT/HCPCS: 36415; 70450; 72100; 72125; 72220; 80048; 80307; 81003; 82553; 83874; 84484; 85025; 87070; 87077; 87086; 87186; 87205; 90471; 90715; 93005; 96360; 99285

== ENCOUNTER 2017-03-26 14:58 | Emergency (ER) | payer MEDICARE, OTHER ==
[~2017-03-26 14:58] MED LIST changes: +AMITIZA8 MCG PO; +ASPIRIN81 M2 PO
== END 2017-03-26 17:28 | disposition home or self-care (01) ==
LOC: SED 14:58
DX: Z48.01 Encounter for change or removal of surgical wound dressing (principal); I10 Essential (primary) hypertension; J44.9 Chronic obstructive pulmonary disease, unspecified; Z79.82 Long term (current) use of aspirin; Z79.899 Other long term (current) drug therapy
CPT/HCPCS: 99282